=== PATIENT | female | born 1940 | race Caucasian/White ===

== ENCOUNTER → 2018-01-04 | Outpatient (CLI) | payer OTHER | END | disposition home or self-care (01) | LOC: PCVCCLINIC 14:32 | DX: I10 Essential (primary) hypertension (principal); E78.5 Hyperlipidemia, unspecified; G47.33 Obstructive sleep apnea (adult) (pediatric); R06.02 Shortness of breath; R53.83 Other fatigue; R94.31 Abnormal electrocardiogram [ECG] [EKG]; Z79.899 Other long term (current) drug therapy | CPT/HCPCS: 80061; 93005; G0463 ==

== ENCOUNTER → 2018-01-11 | Outpatient (CLI) | payer OTHER ==
[~2018-01-11] MED LIST: REGADENOSON 0.4 MG/5 ML DISP.SYRIN. IV
== END | disposition home or self-care (01) ==
LOC: PCVCIMAG 08:26
DX: I08.3 Combined rheumatic disorders of mitral, aortic and tricuspid valves (principal); R06.00 Dyspnea, unspecified; R94.31 Abnormal electrocardiogram [ECG] [EKG]; E78.5 Hyperlipidemia, unspecified; I10 Essential (primary) hypertension; G47.30 Sleep apnea, unspecified; R53.83 Other fatigue
CPT/HCPCS: 78452; 93017; 93306; A9500; J2785

== ENCOUNTER → 2018-01-18 | Outpatient (CLI) | payer OTHER | END | disposition home or self-care (01) | LOC: PCVCCLINIC 11:11 | DX: I10 Essential (primary) hypertension (principal); G47.30 Sleep apnea, unspecified; E78.5 Hyperlipidemia, unspecified | CPT/HCPCS: 36415 ==

== ENCOUNTER → 2018-01-20 | Outpatient (CLI) | payer OTHER ==
[~2018-01-20] MED LIST changes: +DIAZEPAM 10 MG TABLET.; +IOHEXOL 350 MG/ML 100 ML VIAL.; +IOHEXOL 350 MG/ML 50 ML VIAL.; +LIDOCAINE 1% Multi-Dose 20 ML VIAL.; +MIDAZOLAM HCL/PF 2 MG/2 ML VIAL.; -REGADENOSON 0.4 MG/5 ML DISP.SYRIN. IV; +fentaNYL PF VIAL 100 MCG/2 ML VIAL
== END ==
LOC: PCVCINTER 07:01
DX: I25.10 Atherosclerotic heart disease of native coronary artery without angina pectoris (principal); I10 Essential (primary) hypertension; E78.5 Hyperlipidemia, unspecified
CPT/HCPCS: 36252; 93460; C1751; C1760; C1769; C1894; J1644; J2250; J3010; Q9967

== ENCOUNTER → 2019-09-21 | Outpatient (CLI) | payer OTHER | END | disposition home or self-care (01) | LOC: PCVCCLINIC 11:00 | PROVIDERS: ATTEND Internal Medicine Cardiovascular Disease | DX: I10 Essential (primary) hypertension (principal); E78.00 Pure hypercholesterolemia, unspecified; R25.1 Tremor, unspecified; G47.33 Obstructive sleep apnea (adult) (pediatric); F32.9 Major depressive disorder, single episode, unspecified; Z90.710 Acquired absence of both cervix and uterus; Z79.899 Other long term (current) drug therapy | CPT/HCPCS: 36415; 80061; 93005; G0463 ==